=== PATIENT | female | born 1950 | race Caucasian/White ===

== ENCOUNTER → 2025-02-16 11:50 | Outpatient (REF) | payer MEDICARE, OTHER, SELFPAY | LOC: MRI 3T 11:50 | PROVIDERS: ATTENDING PHYSICIAN Psychiatry & Neurology Neurology; FAMILY PHYSICIAN Internal Medicine | DX: M54.2 Cervicalgia (principal); G89.29 Other chronic pain; M62.838 Other muscle spasm; R42 Dizziness and giddiness; G44.329 Chronic post-traumatic headache, not intractable; D32.9 Benign neoplasm of meninges, unspecified | CPT/HCPCS: 70551; 72141 ==